=== PATIENT | female | born 1990 | race African-American/Black ===

== ENCOUNTER 2018-05-17 13:24 | Emergency (ER) | payer MEDICAID ==
[~2018-05-17] VITALS: Ht 157.5 cm; Wt 83.0 kg
[~2018-05-17 13:24] MED LIST: HYDROCODONE
[2018-05-17 14:10] VITALS: BP 124/78
== END 2018-05-17 17:59 | disposition left against medical advice (07) ==
LOC: ER 16:02
DX: M79.10 Myalgia, unspecified site (principal); R50.9 Fever, unspecified; R11.10 Vomiting, unspecified; Z53.21 Procedure and treatment not carried out due to patient leaving prior to being seen by health care provider